=== PATIENT | male | born 1945 | race Caucasian/White ===

== ENCOUNTER → 2023-01-19 | Day surgery (SDC) | payer OTHER ==
[~2023-01-19] MED LIST: ADVIL200 M1 PO; ANORO ELLIPTA1 EACH INH; FENTANYL CITRATE/PF 100MCG/2 ML INJ ONE; LACTATED RINGER'S 1,000 ML ONE; MIDAZOLAM HCL 2 MG/2 ML VIAL ONE; OR PHACO EYE KIT ONE; PREOP PHACO EYE KIT ONE; VITAMIN C1000 M1 PO
[2023-01-19 09:46] VITALS: TEMP 97
[2023-01-19 10:00] VITALS: BP 140/87; PULSE 65; RESP 16; O2SAT 97
== END | disposition home or self-care (01) ==
LOC: OR 06:20
PROVIDERS: ATTEND Ophthalmology
DX: H25.11 Age-related nuclear cataract, right eye (principal); J44.9 Chronic obstructive pulmonary disease, unspecified; Z88.0 Allergy status to penicillin; Z91.018 Allergy to other foods; Z79.1 Long term (current) use of non-steroidal anti-inflammatories (NSAID); Z79.899 Other long term (current) drug therapy; Z87.891 Personal history of nicotine dependence
CPT/HCPCS: 66984; J2250; J3010; J7121